=== PATIENT | male | born 1965 | race Caucasian/White ===

== ENCOUNTER → 2019-10-05 | Day surgery (SDC) | payer MEDICARE ==
[~2019-10-05] MED LIST: ASPIR 8181 MG PO; BENZOCAINE/TETRACAINE/BUTAMBEN AERO SPRAY 56 GM CAN ONE; COMBIGAN EYE DRO5 ML; COREG12.5 MG PO; EXCEDRIN MIGRA1 EAC3 PO; LACTULOSE20 GM/30 M PO; NIFEDIPINE20 MG PO; PANTOPRAZOLE SO40 MG PO; PROPOFOL IV EMULSION 10 MG/ML 50 ML VIAL ONE; SODIUM CHLORIDE 0.9% 500ML 500 ML ONE
--- OUTSIDE RECORDS SUMMARY | 2019-10-05 10:31 | XMS REPORT ---
Author Author [facility] Address Unknown Phone Unavailable Care Team Providers Care Sheep Farmer Name Role Phone WENDY TADEO Unavailable Unavailable JOSH LORENZO Unavailable Unavailable Jason WATTS Unavailable Unavailable Problems This patient has no known problems. Allergies, Adverse Reactions, Alerts This patient has no known allergies or adverse reactions. Medications This patient has no known medications. Encounters Start Date/Time End Date/Time Encounter Type Admission Type Attending Clinicians Care Facility Care Department Encounter ID 2018-09-15 00:14:20 2018-09-15 00:14:20 Emergency [facility] [id number] 2018-09-14 22:20:24 2018-09-14 22:20:24 Emergency [facility] [id number] Results Test Description Test Time Test Comments Text Results Atomic Results Result Comments LIVER FIBROSIS, FIBROTEST-ACTITEST PANEL 2018-05-13 09:50:00 FIBROSIS SCORE ([facility]) (test kmkp=7972389) FIBROSIS STAGE ([facility]) (test mfim=4754450) FIBROSIS INTERPRETATION ([facility]) (test hgka=5648659) NECROINFLAMMAT ACTIVITY GRADE ([facility]) (test ddod=0889388) NECROINFLAMMAT INTERP ([facility]) (test gpdp=2421594) BILIRUBIN, TOTAL ([facility]) (test bnit=3535117) GGT ([facility]) (test scjs=3744706) ALT (SGPT) ([facility]) (test uuug=0418107) ALPHA 2 MACROGLOBULIN ([facility]) (test rrkb=4554091) HAPTOGLOBIN ([facility]) (test stpw=6838872) APOLIPOPROTEIN A-1 ([facility]) (test jgjf=2736652) NECROINFLAMMAT ACTIVITY SCORE (test yflc=2620549) HEPATITIS C PCR, [id number] 06:38:00* Test Item Value Reference Range Comments HCV NUMERIC RESULT (BEAKER) (test pmtf=9230) 584470 IU/mL <15 This test uses a Real-Time Polymerase Chain Reaction (RT-PCR) methodology and wa s performed using KELSEY Ampliprep/KELSEY TaqMan HCV test kit version 2.0 ([employer]).Reportable range for this assay is 15 - 100,000,000 IU per mL (1.18 - 8.00 Log IU/mL).HEPATITIS B CORE ANTIBODY, [id number] 20:16:00* Test Item Value Reference Range Comments HEPATITIS B CORE TOTAL ANTIBODY (BEAKER) (test bkuo=728) Nonreactive Nonreactive HIV-1 ANTIGEN WITH HIV-1/2 [id number] 20:16:00* Test Item Value Reference Range Comments HIV-1 ANTIGEN WITH HIV 1\T\2 ANTIBODY (2) (BEAKER) (test nqjt=5180) Nonreactive Nonreactive BASIC METABOLIC [id number] 17:46:00* Test Item Value Reference Range Comments SODIUM (BEAKER) (test kpaw=569) 139 meq/L 136-145 POTASSIUM (BEAKER) (test eiht=441) 3.9 meq/L 3.5-5.1 CHLORIDE (BEAKER) (test eyod=826) 103 meq/L 98-107 CO2 (BEAKER) (test isyf=929) 23 meq/L 22-29 BLOOD UREA NITROGEN (BEAKER) (test lsps=809) 43 mg/dL 7-21 CREATININE (BEAKER) (test wnkx=912) 7.15 mg/dL 0.57-1.25 GLUCOSE RANDOM (BEAKER) (test qgtw=461) 125 mg/dL 70-105 CALCIUM (BEAKER) (test xvlv=243) 10.2 mg/dL 8.4-10.2 EGFR (BEAKER) (test yzvl=9832) 8 mL/min/1.73 sq m ESTIMATED GFR IS NOT ACCURATE CREATININE CLEARANCE IN PREDICTING GLOMERULAR FILTRATION RATE. ESTIMATED GFR IS NOT APPLICABLE FOR DIALYSIS PATIENTS. HEPATIC FUNCTION [id number] 17:45:00* Test Item Value Reference Range Comments TOTAL PROTEIN (BEAKER) (test xwsw=707) 7.5 gm/dL 6.0-8.3 ALBUMIN (BEAKER) (test dkab=3484) 4.0 g/dL 3.5-5.0 BILIRUBIN TOTAL (BEAKER) (test vwdb=075) 0.5 mg/dL 0.2-1.2 BILIRUBIN DIRECT (BEAKER) (test ogzf=456) 0.2 mg/dL 0.1-0.5 ALKALINE PHOSPHATASE (BEAKER) (test rvil=087) 88 U/L 40-150 AST (SGOT) (BEAKER) (test opjt=199) 26 U/L 5-34 ALT (SGPT) (BEAKER) (test iyuj=898) 25 U/L 6-55 [id number] 17:43:00* Test Item Value Reference Range Comments ETHANOL (BEAKER) (test otfp=866) < mg/dL <=10 PROTHROMBIN [id number] 17:20:00* Test Item Value Reference Range Comments PROTIME (BEAKER) (test ykwh=917) 14.3 seconds 11.7-14.7 INR (BEAKER) (test ztkr=928) 1.1 <=5.9 RECOMMENDED COUMADIN/WARFARIN INR THERAPY RANGESSTANDARD DOSE: 2.0 - 3.0 Inclu joellen: PROPHYLAXIS for venous thrombosis, systemic embolization; TREATMENT for gunnar ous thrombosis and/or pulmonary embolus.HIGH RISK: Target INR is 2.5-3.5 for pat ients with mechanical heart valves.CBC W/PLT COUNT & AUTO [id number] 17:10:00* Test Item Value Reference Range Comments WHITE BLOOD CELL COUNT (BEAKER) (test yzfx=366) 7.9 K/ L 3.5-10.5 RED BLOOD CELL COUNT (BEAKER) (test soqg=950) 4.05 M/ L 4.63-6.08 HEMOGLOBIN (BEAKER) (test sbwj=656) 12.7 GM/DL 13.7-17.5 HEMATOCRIT (BEAKER) (test iefa=425) 37.2 % 40.1-51.0 MEAN CORPUSCULAR VOLUME (BEAKER) (test ivss=116) 91.9 fL 79.0-92.2 MEAN CORPUSCULAR HEMOGLOBIN (BEAKER) (test ocwc=012) 31.4 pg 25.7-32.2 MEAN CORPUSCULAR HEMOGLOBIN CONC (BEAKER) (test woli=449) 34.1 GM/DL 32.3-36.5 RED CELL DISTRIBUTION WIDTH (BEAKER) (test zwpi=439) 12.9 % 11.6-14.4 PLATELET COUNT (BEAKER) (test cmcl=996) 166 K/CU MM 150-450 MEAN PLATELET VOLUME (BEAKER) (test dswq=519) 11.1 fL 9.4-12.4 NUCLEATED RED BLOOD CELLS (BEAKER) (test xojk=083) 0 /100 WBC 0-0 NEUTROPHILS RELATIVE PERCENT (BEAKER) (test ixym=603) 59 % LYMPHOCYTES RELATIVE PERCENT (BEAKER) (test amfz=084) 25 % MONOCYTES RELATIVE PERCENT (BEAKER) (test qrla=884) 13 % EOSINOPHILS RELATIVE PERCENT (BEAKER) (test owbc=115) 2 % BASOPHILS RELATIVE PERCENT (BEAKER) (test ruqq=590) 1 % NEUTROPHILS ABSOLUTE COUNT (BEAKER) (test xnfl=481) 4.64 K/ L 1.78-5.38 LYMPHOCYTES ABSOLUTE COUNT (BEAKER) (test mjgb=557) 1.93 K/ L 1.32-3.57 MONOCYTES ABSOLUTE COUNT (BEAKER) (test dnvx=468) 1.05 K/ L 0.30-0.82 EOSINOPHILS ABSOLUTE COUNT (BEAKER) (test xycu=848) 0.18 K/ L 0.04-0.54 BASOPHILS ABSOLUTE COUNT (BEAKER) (test ejqv=288) 0.05 K/ L 0.01-0.08 IMMATURE GRANULOCYTES-RELATIVE PERCENT (BEAKER) (test cgfv=0854) 0 % 0-1 CT, ABDOMEN, [id number] 14:11:00Referring: Dr. Juliocesar Otto seconday to hep c evaluate for massesFINAL REPORT CT Abdomen, 03/05/2018. History: Cirrhosis. Comparison: 12/18/2016. Technique: Multidetector CT imaging of the abdomen was performed from the level the diaphragm to the iliac crests before and after intravenous administration of non-ionic contrast and without oral contrast. Scanning during arterial, venous, and delayed phases was performed. Coronal and sagittal multiplanar reformations were obtained. This exam was performed according to our departmental dose- optimization program which includes automated exposure control, adjustment of the mA and/or kV according to patient size and/or use of iterative reconstruction technique. Discussion: Lung bases: No visualized abnormalities. Abdomen: There is mild nodularity of the liver surface contour. There is no focal hepatic lesion. The portal vein is dilated measuring 1.4 cm in diameter. Splenorenal varices are noted. The gallbladder, biliary tree, spleen, pancreas, adrenal glands, and kidneys are normal. The hepatic vein and splenic vein are patent. The abdominal aorta is within normal limits. The celiac artery, SMA, and CLAUDIO are patent. A re placed common hepatic artery is present. The renal arteries are patent. The stomach and visualized bowel are unremarkable. The appendix is visualized and is normal. There is no evidence of adenopathy or free fluid. Bone and soft tissues: No acute abnormality. IMPRESSION:Cirrhotic liver with findings of po rtal hypertension but no suspicious hepatic abnormality. Signed: Chemo Norris MDReport Verified Date/Time: 03/05/2018 14:11:07 Reading Location: [address] Radiology Reading Room TITIS C PCR, [id number] 15:04:00* Test Item Value Reference Range Comments HCV NUMERIC RESULT (MARY KAY) (test rlzg=7635) [id number] IU/mL <15 This test uses a Real-Time Polymerase Chain Reaction (RT-PCR) methodology and wa s performed using KELSEY Ampliprep/KELSEY TaqMan HCV test kit version 2.0 ([employer]).Reportable range for this assay is 15 - 100,000,000 IU per mL (1.18 - 8.00 Log IU/mL).HEPATITIS B PCR, [id number] 21:31:00 * Test Item Value Reference Range Comments HBV RESULT COMPONENT (MARY KAY) (test qiyt=3332) HBV DNA not detected HBV DNA not detected This test uses a Real-Time Polymerase Chain Reaction (RT-PCR) methodology and wa s performed using KELSEY AmpliPrep/KELSEY TaqMan HBV Test, v2.0 ([employer]Reportable range for this assay is 20 - 170,000,000 IU per mL ( 1.30 - 8.23 Log IU/mL).HEPATITIS C [id number] 15:22:00* Test Item Value Reference Range Comments HEPATITIS C ANTIBODY (MARY KAY) (test xzuf=981) Reactive Nonreactive HEPATITIS B SURFACE [id number] 15:15:00* Test Item Value Reference Range Comments HEPATITIS B SURFACE ANTIBODY (MARY KAY) (test fquv=001) < mIU/mL <8.0 HEPATITIS B SURFACE [id number] 15:04:00* Test Item Value Reference Range Comments HEPATITIS B SURFACE ANTIGEN (2) (BEAKER) (test cnfd=9526) Nonreactive Nonreactive ALPHA FETOPROTEIN (AFP), TUMOR [id number] 15:04:00* Test Item Value Reference Range Comments ALPHA-FETOPROTEIN (BEAKER) (test fslt=5060) 3.9 ng/mL <10.0 HEPATITIS B CORE ANTIBODY, [id number] 15:04:00* Test Item Value Reference Range Comments HEPATITIS B CORE TOTAL ANTIBODY (BEAKER) (test lpbz=152) Nonreactive Nonreactive BASIC METABOLIC [id number] 14:47:00* Test Item Value Reference Range Comments SODIUM (BEAKER) (test wmtw=255) 137 meq/L 136-145 POTASSIUM (BEAKER) (test uctu=619) 4.4 meq/L 3.5-5.1 CHLORIDE (BEAKER) (test psvh=054) 103 meq/L 98-107 CO2 (BEAKER) (test fjbo=298) 24 meq/L 22-29 BLOOD UREA NITROGEN (BEAKER) (test qwov=343) 38 mg/dL 7-21 CREATININE (BEAKER) (test ayyd=616) 6.26 mg/dL 0.57-1.25 GLUCOSE RANDOM (BEAKER) (test nqof=776) 201 mg/dL 70-105 CALCIUM (BEAKER) (test ywgs=878) 9.4 mg/dL 8.4-10.2 EGFR (BEAKER) (test bxks=1984) 10 mL/min/1.73 sq m ESTIMATED GFR IS NOT ACCURATE CREATININE CLEARANCE IN PREDICTING GLOMERULAR FILTRATION RATE. ESTIMATED GFR IS NOT APPLICABLE FOR DIALYSIS PATIENTS. HEPATIC FUNCTION [id number] 14:41:00* Test Item Value Reference Range Comments TOTAL PROTEIN (BEAKER) (test djwy=921) 7.6 gm/dL 6.0-8.3 ALBUMIN (BEAKER) (test efgt=1503) 4.1 g/dL 3.5-5.0 BILIRUBIN TOTAL (BEAKER) (test uqpu=317) 0.7 mg/dL 0.2-1.2 BILIRUBIN DIRECT (BEAKER) (test oryq=858) 0.3 mg/dL 0.1-0.5 ALKALINE PHOSPHATASE (BEAKER) (test hwqx=615) 84 U/L 40-150 AST (SGOT) (BEAKER) (test kzxu=936) 22 U/L 5-34 ALT (SGPT) (BEAKER) (test dhzn=112) 26 U/L 6-55 PROTHROMBIN TIME/[id number] 14:32:00* Test Item Value Reference Range Comments PROTIME (BEAKER) (test qoxr=063) 14.8 seconds 11.7-14.7 INR (BEAKER) (test hpuq=317) 1.2 <=5.9 RECOMMENDED COUMADIN/WARFARIN INR THERAPY RANGESSTANDARD DOSE: 2.0 - 3.0 Inclu joellen: PROPHYLAXIS for venous thrombosis, systemic embolization; TREATMENT for gunnar ous thrombosis and/or pulmonary embolus.HIGH RISK: Target INR is 2.5-3.5 for pat ients with mechanical heart valves.CBC W/PLT COUNT & AUTO [id number] 14:19:00* Test Item Value Reference Range Comments WHITE BLOOD CELL COUNT (BEAKER) (test jssq=258) 8.1 K/ L 3.5-10.5 RED BLOOD CELL COUNT (BEAKER) (test pmkx=020) 3.93 M/ L 4.63-6.08 HEMOGLOBIN (BEAKER) (test fzaz=650) 12.2 GM/DL 13.7-17.5 HEMATOCRIT (BEAKER) (test dbqn=027) 37.1 % 40.1-51.0 MEAN CORPUSCULAR VOLUME (BEAKER) (test qtua=933) 94.4 fL 79.0-92.2 MEAN CORPUSCULAR HEMOGLOBIN (BEAKER) (test tgyc=985) 31.0 pg 25.7-32.2 MEAN CORPUSCULAR HEMOGLOBIN CONC (BEAKER) (test fify=208) 32.9 GM/DL 32.3-36.5 RED CELL DISTRIBUTION WIDTH (BEAKER) (test ivte=935) 13.3 % 11.6-14.4 PLATELET COUNT (BEAKER) (test eaeq=659) 163 K/CU MM 150-450 MEAN PLATELET VOLUME (BEAKER) (test tiej=892) 11.0 fL 9.4-12.4 NUCLEATED RED BLOOD CELLS (BEAKER) (test tcoi=586) 0 /100 WBC 0-0 NEUTROPHILS RELATIVE PERCENT (BEAKER) (test vcuw=908) 71 % LYMPHOCYTES RELATIVE PERCENT (BEAKER) (test nsxj=298) 17 % MONOCYTES RELATIVE PERCENT (BEAKER) (test lbpt=078) 9 % EOSINOPHILS RELATIVE PERCENT (BEAKER) (test aecn=483) 2 % BASOPHILS RELATIVE PERCENT (BEAKER) (test sxzg=688) 1 % NEUTROPHILS ABSOLUTE COUNT (BEAKER) (test ysrs=227) 5.73 K/ L 1.78-5.38 LYMPHOCYTES ABSOLUTE COUNT (BEAKER) (test kyiu=984) 1.33 K/ L 1.32-3.57 MONOCYTES ABSOLUTE COUNT (BEAKER) (test syeb=798) 0.75 K/ L 0.30-0.82 EOSINOPHILS ABSOLUTE COUNT (BEAKER) (test jhgu=061) 0.17 K/ L 0.04-0.54 BASOPHILS ABSOLUTE COUNT (BEAKER) (test xcek=452) 0.05 K/ L 0.01-0.08 IMMATURE GRANULOCYTES-RELATIVE PERCENT (BEAKER) (test hmhu=3149) 0 % 0-1 BASIC METABOLIC [id number] 11:38:00* Test Item Value Reference Range Comments SODIUM (BEAKER) (test edio=646) 139 meq/L 136-145 POTASSIUM (BEAKER) (test sdbn=302) 4.3 meq/L 3.5-5.1 CHLORIDE (BEAKER) (test pwal=959) 101 meq/L 98-107 CO2 (BEAKER) (test rpzq=217) 25 meq/L 22-29 BLOOD UREA NITROGEN (BEAKER) (test vyiq=689) 44 mg/dL 7-21 CREATININE (BEAKER) (test zvdk=556) 7.79 mg/dL 0.57-1.25 GLUCOSE RANDOM (BEAKER) (test ethl=341) 283 mg/dL 70-105 CALCIUM (BEAKER) (test nzly=632) 9.1 mg/dL 8.4-10.2 EGFR (BEAKER) (test beua=2169) 7 mL/min/1.73 sq m ESTIMATED GFR IS NOT ACCURATE CREATININE CLEARANCE IN PREDICTING GLOMERULAR FILTRATION RATE. ESTIMATED GFR IS NOT APPLICABLE FOR DIALYSIS PATIENTS. [id number] 11:33:00* Test Item Value Reference Range Comments PROTIME (BEAKER) (test syft=195) 14.4 seconds 11.7-14.7 INR (BEAKER) (test nukl=992) 1.1 <=5.9 PARTIAL THROMBOPLASTIN TIME (BEAKER) (test owvp=306) 34.1 seconds 22.5-36.0 RECOMMENDED COUMADIN/WARFARIN INR THERAPY RANGESSTANDARD DOSE: 2.0 - 3.0 Inclu joellen: PROPHYLAXIS for venous thrombosis, systemic embolization; TREATMENT for gunnar ous thrombosis and/or pulmonary embolus.HIGH RISK: Target INR is 2.5-3.5 for pat ients with mechanical heart valves.CBC (HEMOGRAM ONLY)2017-12-03 11:21:00* Test Item Value Reference Range Comments WHITE BLOOD CELL COUNT (BEAKER) (test morq=299) 6.8 K/ L 3.5-10.5 RED BLOOD CELL COUNT (BEAKER) (test lkhk=766) 3.68 M/ L 4.63-6.08 HEMOGLOBIN (BEAKER) (test mjnh=484) 11.6 GM/DL 13.7-17.5 HEMATOCRIT (BEAKER) (test lrdj=945) 35.1 % 40.1-51.0 MEAN CORPUSCULAR VOLUME (BEAKER) (test lglr=720) 95.4 fL 79.0-92.2 MEAN CORPUSCULAR HEMOGLOBIN (BEAKER) (test tyce=162) 31.5 pg 25.7-32.2 MEAN CORPUSCULAR HEMOGLOBIN CONC (BEAKER) (test vbxp=902) 33.0 GM/DL 32.3-36.5 RED CELL DISTRIBUTION WIDTH (BEAKER) (test cugi=907) 14.2 % 11.6-14.4 PLATELET COUNT (BEAKER) (test zsmj=921) 155 K/CU MM 150-450 MEAN PLATELET VOLUME (BEAKER) (test iahi=016) 10.5 fL 9.4-12.4 NUCLEATED RED BLOOD CELLS (BEAKER) (test zoqz=761) 0 /100 WBC 0-0 HLA [id number] 13:10:00* Test Item Value Reference Range Comments HLA RESULT (BEAKER) (test tlcx=1011) See Scanned Report HLA-A AG1 (BEAKER) (test zyru=8691) HLA-A AG2 (BEAKER) (test qazj=3440) HLA-B AG1 (BEAKER) (test vool=8754) HLA-B AG2 (BEAKER) (test lxng=1358) HLA-C AG1 (BEAKER) (test alqx=1883) HLA-C AG2 (BEAKER) (test ychb=0528) HLA-DR AG1 (BEAKER) (test ckmn=3957) HLA-DR AG2 (BEAKER) (test dcwx=8883) HLA-DQ AG1 (BEAKER) (test volu=5370) HLA-DQ AG2 (BEAKER) (test mrbv=9909) HLA-DRW (BEAKER) (test nteq=6788) FLOW PRA CLASS I AND [id number] 12:56:00* Test Item Value Reference Range Comments DATE OF SERUM (BEAKER) (test irnw=1893) 212912 SERUM # (MARY KAY) (test vmvl=1465) [id number] FLOW PRA CLASS I AND II (test xwyd=4534) See Scanned Report CYTOMEGALOVIRUS ANTIBODY, [id number] 13:56:00* Test Item Value Reference Range Comments CYTOMEGALOVIRUS IGG ANTIBODY (BEAKER) (test ssoq=026) Negative CYTOMEGALOVIRUS ANTIBODY, [id number] 13:56:00* Test Item Value Reference Range Comments CYTOMEGALOVIRUS IGM ANTIBODY (BEAKER) (test rdng=215) Negative EBV-VCA ANTIBODY, [id number] 13:56:00* Test Item Value Reference Range Comments ASHLEY-MTZ VCA IGG (BEAKER) (test jtta=596) Positive EBV-VCA ANTIBODY, [id number] 13:56:00* Test Item Value Reference Range Comments ASHLEY-MTZ VCA IGM (BEAKER) (test lpdo=866) Negative VARICELLA ZOSTER ANTIBODY, [id number] 13:47:00* Test Item Value Reference Range Comments VARICELLA ZOSTER IGG (AL) (BEAKER) (test byoi=5126) 3.9 Al VARICELLA ZOSTER RESULT INTERPRETATIONS: <=0.8 Al Nonreactive: Presumed non-immune to VZV 0.9-1.0 Al Equivocal >=1.1 Al Reactive: Presumed immune to [id number] 11:10:00* Test Item Value Reference Range Comments RPR SCREEN (BEAKER) (test wjcm=696) Nonreactive Nonreactive HEMOGLOBIN [id number] 20:52:00* Test Item Value Reference Range Comments HEMOGLOBIN A1C (BEAKER) (test hdfb=550) 7.1 % 4.3-6.1 HEPATITIS B SURFACE [id number] 16:10:00* Test Item Value Reference Range Comments HEPATITIS B SURFACE ANTIBODY (BEAKER) (test tvvh=521) 10.7 mIU/mL <8.0 Indeterminate HEPATITIS C [id number] 15:38:00* Test Item Value Reference Range Comments HEPATITIS C ANTIBODY (BEAKER) (test mxbb=749) Reactive Nonreactive HEPATITIS B SURFACE [id number] 15:24:00* Test Item Value Reference Range Comments HEPATITIS B SURFACE ANTIGEN (2) (BEAKER) (test dapi=8726) Nonreactive Nonreactive HEPATITIS B CORE ANTIBODY, [id number] 15:24:00* Test Item Value Reference Range Comments HEPATITIS B CORE IGM ANTIBODY (BEAKER) (test lviv=343) Nonreactive Nonreactive HIV-1 ANTIGEN WITH HIV-1/2 [id number] 15:24:00* Test Item Value Reference Range Comments HIV-1 ANTIGEN WITH HIV 1\T\2 ANTIBODY (2) (BEAKER) (test ufta=0868) Nonreactive Nonreactive PTH, [id number] 15:09:00* Test Item Value Reference Range Comments PARATHYROID HORMONE INTACT (BEAKER) (test vhud=058) 408.1 pg/mL 8.5-72.5 Effective 06/21/2014: Reference Range ChangeNew: 8.5-72.5 Previous: 15.0-90.0 COMPREHENSIVE METABOLIC [id number] 15:05:00* Test Item Value Reference Range Comments TOTAL PROTEIN (BEAKER) (test bpcc=561) 6.8 gm/dL 6.0-8.3 ALBUMIN (BEAKER) (test ursv=9219) 3.5 g/dL 3.5-5.0 ALKALINE PHOSPHATASE (BEAKER) (test qttk=095) 87 U/L 40-150 BILIRUBIN TOTAL (BEAKER) (test htzb=514) 0.5 mg/dL 0.2-1.2 SODIUM (BEAKER) (test httr=101) 139 meq/L 136-145 POTASSIUM (BEAKER) (test xiok=893) 4.6 meq/L 3.5-5.1 CHLORIDE (BEAKER) (test zstz=331) 106 meq/L 98-107 CO2 (BEAKER) (test rehh=451) 22 meq/L 22-29 BLOOD UREA NITROGEN (BEAKER) (test airq=039) 42 mg/dL 7-21 CREATININE (BEAKER) (test uxwe=230) 6.45 mg/dL 0.57-1.25 GLUCOSE RANDOM (BEAKER) (test ltru=181) 148 mg/dL 70-105 CALCIUM (BEAKER) (test qukn=298) 8.4 mg/dL 8.4-10.2 AST (SGOT) (BEAKER) (test szqz=256) 21 U/L 5-34 ALT (SGPT) (BEAKER) (test pian=818) 18 U/L 6-55 EGFR (BEAKER) (test xumm=9696) 9 mL/min/1.73 sq m ESTIMATED GFR IS NOT ACCURATE CREATININE CLEARANCE IN PREDICTING GLOMERULAR FILTRATION RATE. ESTIMATED GFR IS NOT APPLICABLE FOR DIALYSIS PATIENTS. URIC [id number] 15:04:00* Test Item Value Reference Range Comments URIC ACID (BEAKER) (test ybfa=988) 6.8 mg/dL 2.6-7.2 [id number] 15:04:00* Test Item Value Reference Range Comments PHOSPHORUS (BEAKER) (test ilra=261) 4.7 mg/dL 2.3-4.7 LIPID [id number] 15:04:00* Test Item Value Reference Range Comments TRIGLYCERIDES (BEAKER) (test kyio=378) 119 mg/dL CHOLESTEROL (BEAKER) (test qzit=469) 162 mg/dL HDL CHOLESTEROL (BEAKER) (test mspv=861) 36 mg/dL LDL CHOLESTEROL CALCULATED (BEAKER) (test dtaj=858) 102 mg/dL Triglyceride Reference Range: Low Risk <150 Borderline 150-199 High Risk 200-499 Very High Risk >=500Cholesterol Reference Range: Low Risk <200 Borderline 200-239 High Risk >240HDL Cholesterol Reference Range: Low Risk >=60 High Risk <40LDL Cholesterol Reference Range: Optimal <100 Near Optimal 100-129 Borderline 130-159 High 160-189 Very High >=190 GAMMA GLUTAMYL TRANSFERASE (GGT)2016-12-09 15:04:00* Test Item Value Reference Range Comments GAMMA GLUTAMYL TRANSFERASE (BEAKER) (test avgi=618) 41 U/L 9-64 LACTATE DEHYDROGENASE (LDH)2016-12-09 15:04:00* Test Item Value Reference Range Comments LACTATE DEHYDROGENASE (BEAKER) (test nsev=415) 203 U/L 125-220 [id number] 14:53:00* Test Item Value Reference Range Comments PROTIME (BEAKER) (test bprv=621) 14.9 seconds 11.7-14.7 INR (BEAKER) (test wlmr=160) 1.2 <=5.9 PARTIAL THROMBOPLASTIN TIME (BEAKER) (test ygcd=336) 32.6 seconds 22.5-36.0 RECOMMENDED COUMADIN/WARFARIN INR THERAPY RANGESSTANDARD DOSE: 2.0 - 3.0 Inclu joellen: PROPHYLAXIS for venous thrombosis, systemic embolization; TREATMENT for gunnar ous thrombosis and/or pulmonary embolus.HIGH RISK: Target INR is 2.5-3.5 for pat ients with mechanical heart valves.CBC W/PLT COUNT & AUTO [id number] 14:48:00* Test Item Value Reference Range Comments WHITE BLOOD CELL COUNT (BEAKER) (test jrir=505) 9.2 K/ L 4.0-10.0 RED BLOOD CELL COUNT (BEAKER) (test pskr=605) 3.58 M/ L 4.20-5.80 HEMOGLOBIN (BEAKER) (test fdai=773) 12.0 GM/DL 13.0-16.8 HEMATOCRIT (BEAKER) (test xwmx=979) 33.2 % 40.0-50.0 MEAN CORPUSCULAR VOLUME (BEAKER) (test zwmz=342) 92.8 fL 82.0-98.0 MEAN CORPUSCULAR HEMOGLOBIN (BEAKER) (test xvoy=290) 33.5 pg 27.0-33.0 MEAN CORPUSCULAR HEMOGLOBIN CONC (BEAKER) (test nnkm=138) 36.1 GM/DL 32.0-36.0 RED CELL DISTRIBUTION WIDTH (BEAKER) (test ufpt=602) 14.1 % 10.3-14.2 PLATELET COUNT (BEAKER) (test hkwm=627) 156 K/CU MM 150-430 MEAN PLATELET VOLUME (BEAKER) (test ljcd=460) 8.0 fL 6.5-10.5 NUCLEATED RED BLOOD CELLS (BEAKER) (test aqqt=599) 0 /100 WBC 0-0 NEUTROPHILS RELATIVE PERCENT (BEAKER) (test lzvh=288) 72 % LYMPHOCYTES RELATIVE PERCENT (BEAKER) (test bosq=515) 17 % MONOCYTES RELATIVE PERCENT (BEAKER) (test irrx=085) 8 % EOSINOPHILS RELATIVE PERCENT (BEAKER) (test tfxp=051) 3 % BASOPHILS RELATIVE PERCENT (BEAKER) (test tsul=873) 0 % NEUTROPHILS ABSOLUTE COUNT (BEAKER) (test iwjz=022) 6.62 K/ L 1.80-8.00 LYMPHOCYTES ABSOLUTE COUNT (BEAKER) (test aryl=363) 1.58 K/ L 1.48-4.50 MONOCYTES ABSOLUTE COUNT (BEAKER) (test wtwo=579) 0.72 K/ L 0.00-1.30 EOSINOPHILS ABSOLUTE COUNT (BEAKER) (test fumy=412) 0.23 K/ L 0.00-0.50 BASOPHILS ABSOLUTE COUNT (BEAKER) (test rerx=245) 0.03 K/ L 0.00-0.20 0.00
[2019-10-05 11:07] LABS: BASOPHILS % 0.3 % (0.0-1.0); EOSINOPHILS # (AUTO) 0.1 (0.0-0.4); EOSINOPHILS % 1.5 % (0.0-6.0); HEMATOCRIT 32.1 % (38.2-49.6); HEMOGLOBIN 11.4 g/dL (14.0-18.0); LYMPHOCYTES # (AUTO) 1.5 (1.0-3.2); LYMPHOCYTES % 20.5 % (18.0-39.1); MEAN CORPUSCULAR HEMOGLOBIN 31.9 pg (28-32); MEAN CORPUSCULAR HGB CONC 35.5 g/dL (31-35); MEAN CORPUSCULAR VOLUME 89.9 fL (81-99); MONOCYTES # (AUTO) 1.3 (0.2-0.8); MONOCYTES % 16.9 % (4.4-11.3); NEUTROPHILS # (AUTO) 4.5 (2.1-6.9); NEUTROPHILS % 60.5 % (38.7-80.0); PLATELET COUNT 147 x10e3/uL (140-360); RED BLOOD COUNT 3.57 x10e6/uL (4.3-5.7); RED CELL DISTRIBUTION WIDTH 12.6 % (11.7-14.4)
[2019-10-05 11:28] LABS: ANION GAP 12.9 mmol/L (8-16); CALCIUM 9.1 mg/dL (8.4-10.2); CREATININE, SERUM 8.41 mg/dL (0.72-1.25); POTASSIUM 3.9 mmol/L (3.5-5.1)
[2019-10-05 11:40] LABS: INR 1.05; PROTHROMBIN TIME 14.3 seconds (11.9-14.5)
[2019-10-05 11:41] LABS: PARTIAL THROMBOPLASTIN TIME 34.8 seconds (23.8-35.5)
[2019-10-05 13:25] VITALS: BP 158/86
== END | disposition home or self-care (01) ==
LOC: OR 10:29
PROVIDERS: ATTEND Internal Medicine Gastroenterology
DX: K29.70 Gastritis, unspecified, without bleeding (principal); I86.4 Gastric varices; K74.60 Unspecified cirrhosis of liver; I85.10 Secondary esophageal varices without bleeding; K31.89 Other diseases of stomach and duodenum; K44.9 Diaphragmatic hernia without obstruction or gangrene; K59.09 Other constipation; B19.20 Unspecified viral hepatitis C without hepatic coma; D64.9 Anemia, unspecified; E11.22 Type 2 diabetes mellitus with diabetic chronic kidney disease; I13.2 Hypertensive heart and chronic kidney disease with heart failure and with stage 5 chronic kidney disease, or end stage renal disease; N18.6 End stage renal disease; I50.9 Heart failure, unspecified; M19.90 Unspecified osteoarthritis, unspecified site; G62.9 Polyneuropathy, unspecified; H54.7 Unspecified visual loss; J44.9 Chronic obstructive pulmonary disease, unspecified; I27.20 Pulmonary hypertension, unspecified; I25.10 Atherosclerotic heart disease of native coronary artery without angina pectoris; Z91.048 Other nonmedicinal substance allergy status; Z88.6 Allergy status to analgesic agent; Z88.8 Allergy status to other drugs, medicaments and biological substances; Z79.82 Long term (current) use of aspirin; Z99.2 Dependence on renal dialysis
CPT/HCPCS: 36415; 43239; 80048; 82948; 85025; 85610; 85730; 93005; J2704; J7040